=== PATIENT | male | born 1975 | race Caucasian/White ===

== ENCOUNTER 2019-06-19 22:28 | Emergency (ER) | payer SELFPAY ==
[~2019-06-19] VITALS: Ht 170.2 cm; Wt 88.2 kg
[2019-06-19 22:32] VITALS: BP 136/91; Ht 170.2 cm; Wt 88.2 kg
== END 2019-06-19 23:57 | disposition home or self-care (01) ==
LOC: ED 22:28
DX: Z76.0 Encounter for issue of repeat prescription (principal); N40.0 Benign prostatic hyperplasia without lower urinary tract symptoms

== ENCOUNTER 2019-07-27 09:17 | Emergency (ER) | payer MEDICAID ==
[~2019-07-27] VITALS: Ht 170.2 cm; Wt 88.5 kg
[2019-07-27 09:23] VITALS: Ht 170.2 cm; Wt 88.5 kg
[2019-07-27 09:43] VITALS: BP 139/94
== END 2019-07-27 09:43 | disposition home or self-care (01) ==
LOC: ED 09:17
DX: R33.9 Retention of urine, unspecified (principal); Z76.0 Encounter for issue of repeat prescription

== ENCOUNTER 2019-08-30 13:17 | Emergency (ER) | payer MEDICAID ==
[~2019-08-30] VITALS: Ht 170.2 cm; Wt 86.6 kg
[2019-08-30 13:58] VITALS: Ht 170.2 cm; Wt 86.6 kg
[2019-08-30 14:19] VITALS: BP 144/81
== END 2019-08-30 14:19 | disposition home or self-care (01) ==
LOC: ED 13:17
DX: R39.198 Other difficulties with micturition (principal); Z76.0 Encounter for issue of repeat prescription

== ENCOUNTER 2020-02-01 17:47 | Emergency (ER) | payer MEDICAID | END 2020-02-01 19:18 | disposition left against medical advice (07) | LOC: ED 17:47 | DX: Z53.21 Procedure and treatment not carried out due to patient leaving prior to being seen by health care provider (principal) ==

== ENCOUNTER 2020-02-08 18:30 | Emergency (ER) | payer MEDICAID ==
[~2020-02-08] VITALS: Ht 170.2 cm; Wt 81.6 kg
[2020-02-08 18:45] VITALS: BP 139/70; Ht 170.2 cm; Wt 81.6 kg
== END 2020-02-08 19:14 | disposition home or self-care (01) ==
LOC: ED 18:30
DX: N40.0 Benign prostatic hyperplasia without lower urinary tract symptoms (principal); Z76.0 Encounter for issue of repeat prescription